=== PATIENT | female | born 1930 | race Caucasian/White ===

== ENCOUNTER 2018-06-14 07:54 | Inpatient (IN) | payer MEDICARE, MEDICAID ==
[~2018-06-14] VITALS: Ht 154.9 cm; Wt 52.3 kg
[2018-06-14] VITALS (42 sets, daily range): BP systolic 52–154; BP diastolic 27–114
[~2018-06-14 07:54] MED LIST: CITA40TA22 PO; DONE5TAB33 PO; HYDR12.529 PO; LISI-651 PO; MEMA5TAB7 PO; OMEP20CA4 PO; RISP05 PO; SENN-22 PO; TRAM50TA
[2018-06-14] MEDS ORDERED: VANCOMYCIN 1 G PREMIX 200 ML IV ONE (08:00)
[2018-06-14] MEDS ORDERED: PIPERACILLIN/TAZ 3.375G PREMIX 50 ML IV ONE (08:00)
[2018-06-14] MEDS ORDERED: SODIUM CHLORIDE 0.9% 1000ML BAG (SEPSIS BOLUS) IV ONE (08:00)
[2018-06-14 08:31] LABS: HEMATOCRIT. 30.8 % (36.0-48.0); HEMOGLOBIN. 9.7 g/dL (12.0-16.0); MEAN CORPUSCULAR HEMOGLOBIN 35.1 pg (28.0-32.0); MEAN CORPUSCULAR VOLUME 111.4 fL (81.0-99.0); MEAN PLATELET VOLUME 11.8 fl (7.4-10.4); PLATELET 201 x1000/uL (130-400); RED BLOOD CELL COUNT 2.77 mill/uL (4.2-5.4); RED CELL DISTRIBUTION WIDTH 18.3 % (11.6-14.6)
[2018-06-14 08:37] LABS: CHLORIDE 127 mEq/L (98-107)
[2018-06-14 08:43] LABS: CLARITY URINE CLOUDY (CLEAR); COLOR URINE DARK YELLOW (YELLOW); KETONES URINE NEGATIVE (NEGATIVE); LEUKOCYTE ESTERASE URINE 2+ (NEGATIVE); NITRITE URINE NEGATIVE (NEGATIVE); OCCULT BLOOD URINE NEGATIVE (NEGATIVE); PROTEIN URINE NEGATIVE (NEGATIVE); SPECIFIC GRAVITY URINE 1.021 (1.005-1.030); UROBILINOGEN URINE 0.2 E.U./dL (0.2-1.0)
[2018-06-14 08:46] LABS: PLATELET ESTIMATE NORMAL
[2018-06-14 09:29] LABS: BG BASE EXCESS -9.9 mmol/L (-2.0-2.0); BG CARBOXYHEMOGLOBIN 1.2 % (0.5-1.5); BG DEOXYHEMOGLOBIN 0.5 % (0.0-5.0); BG FRACTION INSPIRED OXYGEN 100; BG HCO3 ACT 13.8 mmol/L (22.0-26.0); BG METHEMOGLOBIN 0.3 % (0.0-1.5); BG OXYGEN SATURATION 99.5 % (92.0-98.5); BG PCO2 23.4 mmHg (35.0-45.0); BG PH 7.389 (7.350-7.450); BG PO2 457.9 mmHg (75.0-100.0); BG SAMPLE SITE RIGHT RADIAL; BG TOTAL HEMOGLOBIN 8.1 g/dL (12.0-18.0); BG VENT MODE MASK - NRB
[2018-06-14] MEDS ORDERED: NOREPINEPHRINE 4MG/250ML PMX 250 ML IV ONE (11:30)
[2018-06-14] MEDS ORDERED: DIPHENHYDRAMINE 50MG/ML VIAL IV PRN (13:15)
[2018-06-14] MEDS ORDERED: ONDANSETRON HCL 4MG/2ML INJ IV PRN (13:15)
[2018-06-14] MEDS ORDERED: ENOXAPARIN 40MG/0.4ML SYR SUBCUT SCH (13:15)
[2018-06-14] MEDS ORDERED: IPRATROPIUM/ALBUTEROL 0.5-3(2.5)MG/3ML NEB INH PRN (13:15)
[2018-06-14] MEDS ORDERED: DEXT 5%/0.45% NACL 1000ML 1,000 ML IV SCH (13:15)
[2018-06-14] MEDS: PANTOPRAZOLE SODIUM 40 MG/VIAL IV SCH (13:40)
[2018-06-14] MEDS: ENOXAPARIN 30MG/0.3ML SYR SUBCUT SCH (13:41)
[2018-06-14 14:19] LABS: T4 FREE 1.1 ng/dL (0.76-1.46)
[2018-06-14] MEDS ORDERED: DEXT 5%/0.2% NACL 1,000 ML IV SCH (14:30)
[2018-06-14] MEDS ORDERED: LEVOFLOXACIN 500MG PREMIX 100 ML IV SCH (14:30)
[2018-06-14 14:37] LABS: VITAMIN B12 SERUM 537 pg/mL (211-911)
[2018-06-14] MEDS ORDERED: DEXT 5%/0.2% NACL KCL 20MEQ/L 1,000 ML IV SCH (15:00)
[2018-06-14] MEDS: NOREPINEPHRINE 32 MG in DEXT 5% WATER 468 ML IV PRN (15:11)
[2018-06-14] MEDS: BUDESONIDE 0.5MG/2ML NEB HHN SCH ×2 (15:58→21:10)
[2018-06-14] MEDS: IPRATROPIUM/ALBUTEROL 0.5-3(2.5)MG/3ML NEB HHN SCH ×2 (15:58→20:53)
[2018-06-14] MEDS: NACL IV SCH ×2 (16:09→23:27)
[2018-06-14] MEDS: DEXT IV SCH ×2 (16:09→23:27)
[2018-06-14] MEDS: POTASSIUM CHLORIDE IV SCH ×2 (16:09→23:27)
[2018-06-14] MEDS: CEFEPIME 1,000 MG in DEXTROSE 5% WATER 50 ML IV SCH (17:12)
[2018-06-14] MEDS ORDERED: PHENYLEPHRINE 40 MG in DEXT 5% WATER 246 ML IV PRN (18:00)
[2018-06-14 18:13] LABS: BG BASE EXCESS -11.2 mmol/L (-2.0-2.0); BG BILEVEL POS AIRWAY PRESSURE 15/5; BG CARBOXYHEMOGLOBIN 0.9 % (0.5-1.5); BG DEOXYHEMOGLOBIN 0.9 % (0.0-5.0); BG FRACTION INSPIRED OXYGEN 40; BG METHEMOGLOBIN 0.3 % (0.0-1.5); BG OXYGEN SATURATION 99.1 % (92.0-98.5); BG OXYHEMOGLOBIN 97.9 % (94.0-97.0); BG PCO2 16.6 mmHg (35.0-45.0); BG PH 7.438 (7.350-7.450); BG PO2 213.3 mmHg (75.0-100.0); BG PRESSURE SUPPORT 10; BG SAMPLE SITE RIGHT BRACHIAL; BG TOTAL HEMOGLOBIN 9.7 g/dL (12.0-18.0); BG VENT MODE MASK - BIPAP
[2018-06-14] MEDS ORDERED: SODIUM BICARBONATE 8.4% 1 MEQ/ML 50ML SYR IV NR (18:30)
[2018-06-14] MEDS: ACETAMINOPHEN 650MG SUPP PR PRN (20:12)
[2018-06-14] MEDS: LORAZEPAM 2MG/ML CPJ IV PRN (22:23)
[2018-06-15] VITALS (92 sets, daily range): BP systolic 79–145; BP diastolic 29–75
[2018-06-15] MEDS: IPRATROPIUM/ALBUTEROL 0.5-3(2.5)MG/3ML NEB HHN SCH ×4 (02:06→20:23)
[2018-06-15 04:17] LABS: BASOPHILS % 0.8 % (0.0-2.0); EOSINOPHILS % 1.9 % (0.0-5.0); HEMATOCRIT. 22.8 % (36.0-48.0); HEMOGLOBIN. 7.2 g/dL (12.0-16.0); LYMPHOCYTES % 13.3 % (20.0-50.0); MEAN CORPUSCULAR HEMOGLOBIN 35.4 pg (28.0-32.0); MEAN CORPUSCULAR VOLUME 111.5 fL (81.0-99.0); MEAN PLATELET VOLUME 11.4 fl (7.4-10.4); MONOCYTES % 7.4 % (2.0-8.0); NEUTROPHILS % 76.6 % (40.0-76.0); PLATELET 151 x1000/uL (130-400); RED BLOOD CELL COUNT 2.04 mill/uL (4.2-5.4); RED CELL DISTRIBUTION WIDTH 17.9 % (11.6-14.6)
[2018-06-15 04:28] LABS: CHLORIDE 118 mEq/L (98-107)
[2018-06-15 04:32] LABS: PHOSPHORUS 2.6 mg/dL (2.5-4.9)
[2018-06-15] MEDS: LORAZEPAM 2MG/ML CPJ IV PRN ×3 (04:56→23:12)
[2018-06-15 07:53] LABS: BG BASE EXCESS -8.1 mmol/L (-2.0-2.0); BG BILEVEL POS AIRWAY PRESSURE ST=15/5; BG CARBOXYHEMOGLOBIN 1.4 % (0.5-1.5); BG DEOXYHEMOGLOBIN 0.8 % (0.0-5.0); BG FRACTION INSPIRED OXYGEN 40; BG HCO3 ACT 14.6 mmol/L (22.0-26.0); BG METHEMOGLOBIN 0.3 % (0.0-1.5); BG OXYGEN SATURATION 99.2 % (92.0-98.5); BG OXYHEMOGLOBIN 97.5 % (94.0-97.0); BG PCO2 20.7 mmHg (35.0-45.0); BG PH 7.467 (7.350-7.450); BG PO2 200.7 mmHg (75.0-100.0); BG PRESSURE SUPPORT 10; BG SAMPLE SITE LEFT BRACHIAL; BG TOTAL HEMOGLOBIN 7.2 g/dL (12.0-18.0); BG VENT MODE MASK - BIPAP; BG VENT RATE 14 set
[2018-06-15] MEDS: POTASSIUM CHLORIDE IV SCH ×4 (08:17→22:01)
[2018-06-15] MEDS: PANTOPRAZOLE SODIUM 40 MG/VIAL IV SCH (08:17)
[2018-06-15] MEDS: DEXT IV SCH ×4 (08:17→22:01)
[2018-06-15] MEDS: NACL IV SCH ×4 (08:17→22:01)
[2018-06-15] MEDS: ENOXAPARIN 30MG/0.3ML SYR SUBCUT SCH (08:18)
[2018-06-15] MEDS: BUDESONIDE 0.5MG/2ML NEB HHN SCH ×2 (09:04→20:22)
[2018-06-15] MEDS ORDERED: DEXTROSE 50% WATER 50ML SYRINGE IV PRN (10:30)
[2018-06-15] MEDS: BLOOD SUGAR DIAGNOSTIC STRIP TEST SCH ×2 (11:51→17:49)
[2018-06-15] MEDS: INSULIN GLARGINE UD 100 UNITS/ML SYR SUBCUT SCH ×2 (11:56→21:22)
[2018-06-15] MEDS: INSULIN LISPRO 100 UNITS/ML SUBCUT SCH ×3 (11:58→21:25)
[2018-06-15] MEDS ORDERED: METRONIDAZOLE 500 MG PREMIX 100 ML IV SCH (15:00)
[2018-06-15] MEDS: CEFEPIME 1,000 MG in DEXTROSE 5% WATER 50 ML IV SCH (15:45)
[2018-06-15] MEDS: METRONIDAZOLE 500 MG PREMIX 100 ML IV SCH ×2 (15:45→21:16)
[2018-06-15] MEDS ORDERED: VANCOMYCIN 750 MG PREMIX 150 ML IV NR (17:00)
[2018-06-16] VITALS (64 sets, daily range): BP systolic 91–147; BP diastolic 47–92
[2018-06-16] MEDS: BLOOD SUGAR DIAGNOSTIC STRIP TEST SCH ×4 (00:13→18:41)
[2018-06-16] MEDS: POTASSIUM CHLORIDE IV SCH ×3 (00:20→06:41)
[2018-06-16] MEDS: NACL IV SCH ×3 (00:20→06:41)
[2018-06-16] MEDS: DEXT IV SCH ×3 (00:20→06:41)
[2018-06-16] MEDS: IPRATROPIUM/ALBUTEROL 0.5-3(2.5)MG/3ML NEB HHN SCH ×4 (00:33→20:08)
[2018-06-16 05:41] LABS: HEMATOCRIT. 22.4 % (36.0-48.0); MEAN CORPUSCULAR VOLUME 117.1 fL (81.0-99.0); RED BLOOD CELL COUNT 1.91 mill/uL (4.2-5.4); RED CELL DISTRIBUTION WIDTH 18.2 % (11.6-14.6)
[2018-06-16] MEDS: METRONIDAZOLE 500 MG PREMIX 100 ML IV SCH ×3 (05:53→21:10)
[2018-06-16 05:54] LABS: PHOSPHORUS 1.3 mg/dL (2.5-4.9)
[2018-06-16 06:08] LABS: HEMOGLOBIN. 6.7 g/dL (12.0-16.0)
[2018-06-16] MEDS ORDERED: LEVO75TA7 PO (07:32)
[2018-06-16] MEDS ORDERED: LEVOTHYROXINE SODIUM 75MCG TABLET PO SCH (07:50)
[2018-06-16] MEDS: INSULIN LISPRO 100 UNITS/ML SUBCUT SCH ×3 (08:20→18:20)
[2018-06-16] MEDS: BUDESONIDE 0.5MG/2ML NEB HHN SCH ×2 (08:44→20:08)
[2018-06-16] MEDS: PANTOPRAZOLE SODIUM 40 MG/VIAL IV SCH (08:53)
[2018-06-16] MEDS: ENOXAPARIN 30MG/0.3ML SYR SUBCUT SCH (09:00)
[2018-06-16] MEDS ORDERED: DEXT 5%/0.2% NACL 1,000 ML IV ONE (09:45)
[2018-06-16 09:55] LABS: MEAN PLATELET VOLUME 11.2 fl (7.4-10.4); PLATELET 103 x1000/uL (130-400); PLATELET ESTIMATE DECREASED
[2018-06-16] MEDS: VANCOMYCIN 500 MG PREMIX 100 ML IV SCH (09:55)
[2018-06-16] MEDS ORDERED: SODIUM PHOS,M-BASIC-D-BASIC 20 MM in DEXT 5% WATER 243.3333 ML IV NR (10:30)
[2018-06-16] MEDS: INSULIN GLARGINE UD 100 UNITS/ML SYR SUBCUT SCH (11:20)
[2018-06-16] MEDS ORDERED: SODIUM BICARBONATE 8.4% 1 MEQ/ML 50ML SYR IV ONE (11:45)
[2018-06-16] MEDS: NOREPINEPHRINE 32 MG in DEXT 5% WATER 468 ML IV PRN (12:20)
[2018-06-16] MEDS: WATER IV SCH ×2 (13:27→22:45)
[2018-06-16] MEDS: SODIUM BICARBONATE IV SCH ×2 (13:27→22:45)
[2018-06-16] MEDS: DEXTROSE 5% IV SCH ×2 (13:27→22:45)
[2018-06-16] MEDS ORDERED: LEVOFLOXACIN 250MG PREMIX 50 ML IV SCH (14:00)
[2018-06-16] MEDS: LEVOTHYROXINE SODIUM 100 MCG/ VIAL IV SCH (14:40)
[2018-06-16] MEDS: CEFEPIME 1,000 MG in DEXTROSE 5% WATER 50 ML IV SCH (15:03)
[2018-06-16] MEDS: AZITHROMYCIN 500 MG in DEXT 5% WATER 250 ML IV SCH (17:15)
[2018-06-16 19:53] LABS: HEMATOCRIT 24.7 % (36.0-48.0); MEAN CORPUSCULAR HEMOGLOBIN 34.1 pg (28.0-32.0); MEAN CORPUSCULAR VOLUME 105.2 fL (81.0-99.0); PLATELET 99 x1000/uL (130-400); RED BLOOD CELL COUNT 2.34 mill/uL (4.2-5.4); RED CELL DISTRIBUTION WIDTH 21.5 % (11.6-14.6)
[2018-06-17] VITALS (41 sets, daily range): BP systolic 83–144; BP diastolic 46–101
[2018-06-17] MEDS: BLOOD SUGAR DIAGNOSTIC STRIP TEST SCH ×4 (00:30→18:11)
[2018-06-17] MEDS: INSULIN GLARGINE UD 100 UNITS/ML SYR SUBCUT SCH ×3 (01:06→22:01)
[2018-06-17] MEDS: IPRATROPIUM/ALBUTEROL 0.5-3(2.5)MG/3ML NEB HHN SCH ×4 (02:00→20:20)
[2018-06-17] MEDS: VANCOMYCIN 500 MG PREMIX 100 ML IV SCH (03:21)
[2018-06-17] MEDS: WATER IV SCH (03:22)
[2018-06-17] MEDS: DEXTROSE 5% IV SCH (03:22)
[2018-06-17] MEDS: SODIUM BICARBONATE IV SCH (03:22)
[2018-06-17 05:29] LABS: HEMATOCRIT. 23.6 % (36.0-48.0); MEAN CORPUSCULAR HEMOGLOBIN 33.6 pg (28.0-32.0); MEAN CORPUSCULAR VOLUME 99.2 fL (81.0-99.0); RED BLOOD CELL COUNT 2.38 mill/uL (4.2-5.4); RED CELL DISTRIBUTION WIDTH 19.9 % (11.6-14.6)
[2018-06-17 05:35] LABS: CHLORIDE 114 mEq/L (98-107)
[2018-06-17 05:42] LABS: PHOSPHORUS 1.8 mg/dL (2.5-4.9)
[2018-06-17] MEDS: INSULIN LISPRO 100 UNITS/ML SUBCUT SCH ×4 (06:00→18:00)
[2018-06-17] MEDS: METRONIDAZOLE 500 MG PREMIX 100 ML IV SCH ×3 (06:20→21:55)
[2018-06-17] MEDS: PANTOPRAZOLE SODIUM 40 MG/VIAL IV SCH (08:22)
[2018-06-17] MEDS: LEVOTHYROXINE SODIUM 100 MCG/ VIAL IV SCH (08:23)
[2018-06-17] MEDS: BUDESONIDE 0.5MG/2ML NEB HHN SCH (09:47)
[2018-06-17] MEDS: DEXT 5%/0.45% NACL 1000ML 1,000 ML IV SCH ×2 (09:52→22:16)
[2018-06-17] MEDS ORDERED: SODIUM PHOS,M-BASIC-D-BASIC 15 MM in DEXT 5% WATER 245 ML IV SCH (10:30)
[2018-06-17] MEDS ORDERED: MAGNESIUM 2 G PREMIX 50 ML IV SCH (10:30)
[2018-06-17 10:49] LABS: PLATELET 96 x1000/uL (130-400)
[2018-06-17 10:53] LABS: PLATELET ESTIMATE SLIGHTLY DECREASED
[2018-06-17] MEDS: ENOXAPARIN 30MG/0.3ML SYR SUBCUT SCH (13:00)
[2018-06-17] MEDS: AZITHROMYCIN 500 MG in DEXT 5% WATER 250 ML IV SCH (15:05)
[2018-06-17] MEDS: CEFEPIME 1,000 MG in DEXTROSE 5% WATER 50 ML IV SCH (15:07)
[2018-06-18] VITALS (16 sets, daily range): BP systolic 110–151; BP diastolic 53–103
[2018-06-18] MEDS: BLOOD SUGAR DIAGNOSTIC STRIP TEST SCH ×4 (00:08→17:10)
[2018-06-18] MEDS: IPRATROPIUM/ALBUTEROL 0.5-3(2.5)MG/3ML NEB HHN SCH ×4 (01:40→20:35)
[2018-06-18 05:48] LABS: BASOPHILS % 0.4 % (0.0-2.0); EOSINOPHILS % 4.9 % (0.0-5.0); HEMOGLOBIN. 8.7 g/dL (12.0-16.0); LYMPHOCYTES % 27.3 % (20.0-50.0); MEAN CORPUSCULAR HEMOGLOBIN 33.3 pg (28.0-32.0); MEAN CORPUSCULAR VOLUME 99.7 fL (81.0-99.0); MEAN PLATELET VOLUME 10.9 fl (7.4-10.4); MONOCYTES % 12.6 % (2.0-8.0); NEUTROPHILS % 54.8 % (40.0-76.0); PLATELET 126 x1000/uL (130-400); RED CELL DISTRIBUTION WIDTH 19.5 % (11.6-14.6)
[2018-06-18] MEDS: INSULIN LISPRO 100 UNITS/ML SUBCUT SCH ×4 (06:00→17:16)
[2018-06-18] MEDS: DEXT 5%/0.45% NACL 1000ML 1,000 ML IV SCH ×2 (06:03→21:31)
[2018-06-18] MEDS: METRONIDAZOLE 500 MG PREMIX 100 ML IV SCH ×3 (06:10→21:36)
[2018-06-18] MEDS: LEVOTHYROXINE SODIUM 100 MCG/ VIAL IV SCH (09:02)
[2018-06-18] MEDS: PANTOPRAZOLE SODIUM 40 MG/VIAL IV SCH (09:03)
[2018-06-18] MEDS: ENOXAPARIN 30MG/0.3ML SYR SUBCUT SCH (09:03)
[2018-06-18] MEDS: ACETAMINOPHEN 650MG SUPP PR PRN (09:25)
[2018-06-18] MEDS: INSULIN GLARGINE UD 100 UNITS/ML SYR SUBCUT SCH ×2 (10:51→22:00)
[2018-06-18] MEDS: CEFEPIME 1,000 MG in DEXTROSE 5% WATER 50 ML IV SCH (15:55)
[2018-06-18] MEDS: AZITHROMYCIN 500 MG in DEXT 5% WATER 250 ML IV SCH (15:55)
[2018-06-19] VITALS (10 sets, daily range): BP systolic 131–158; BP diastolic 63–80
[2018-06-19] MEDS: BLOOD SUGAR DIAGNOSTIC STRIP TEST SCH ×4 (00:04→18:08)
[2018-06-19] MEDS: IPRATROPIUM/ALBUTEROL 0.5-3(2.5)MG/3ML NEB HHN SCH ×5 (01:38→20:08)
[2018-06-19] MEDS: INSULIN LISPRO 100 UNITS/ML SUBCUT SCH ×4 (05:54→18:00)
[2018-06-19] MEDS: LORAZEPAM 2MG/ML CPJ IV PRN (08:30)
[2018-06-19] MEDS: ENOXAPARIN 30MG/0.3ML SYR SUBCUT SCH (09:00)
[2018-06-19] MEDS: PANTOPRAZOLE SODIUM 40 MG/VIAL IV SCH (09:47)
[2018-06-19] MEDS: LEVOTHYROXINE SODIUM 100 MCG/ VIAL IV SCH (09:47)
[2018-06-19] MEDS: INSULIN GLARGINE UD 100 UNITS/ML SYR SUBCUT SCH ×2 (11:13→22:00)
[2018-06-19] MEDS: DEXT 5%/0.45% NACL 1000ML 1,000 ML IV SCH (13:56)
[2018-06-20] VITALS (10 sets, daily range): BP systolic 140–164; BP diastolic 54–87
[2018-06-20] MEDS: BLOOD SUGAR DIAGNOSTIC STRIP TEST SCH ×4 (00:07→17:55)
[2018-06-20] MEDS: IPRATROPIUM/ALBUTEROL 0.5-3(2.5)MG/3ML NEB HHN SCH ×4 (02:02→20:14)
[2018-06-20] MEDS: INSULIN LISPRO 100 UNITS/ML SUBCUT SCH ×4 (05:34→17:55)
[2018-06-20] MEDS: LEVOTHYROXINE SODIUM 100 MCG/ VIAL IV SCH (05:34)
[2018-06-20] MEDS: DEXT 5%/0.45% NACL 1000ML 1,000 ML IV SCH (05:35)
[2018-06-20 07:32] LABS: INR 1.2; PARTIAL THROMBOPLASTIN TIME 26.2 sec (23.4-31.0); PROTHROMBIN TIME 11.8 sec (9.6-11.0)
[2018-06-20 07:35] LABS: CHLORIDE 115 mEq/L (98-107)
[2018-06-20 07:37] LABS: HEMATOCRIT 25.3 % (36.0-48.0); HEMOGLOBIN 8.4 g/dL (12.0-16.0); MEAN CORPUSCULAR HEMOGLOBIN 33.5 pg (28.0-32.0); MEAN CORPUSCULAR VOLUME 101.4 fL (81.0-99.0); PLATELET 140 x1000/uL (130-400); RED CELL DISTRIBUTION WIDTH 18.9 % (11.6-14.6)
[2018-06-20] MEDS: PANTOPRAZOLE SODIUM 40 MG/VIAL IV SCH (09:15)
[2018-06-20] MEDS ORDERED: SIMETHICONE 40 MG/0.6 ML 30ML ONE (10:00)
[2018-06-20] MEDS ORDERED: SODIUM CHLORIDE 0.9% 10ML VIAL ONE (10:00)
[2018-06-20] MEDS: INSULIN GLARGINE UD 100 UNITS/ML SYR SUBCUT SCH ×2 (10:00→22:22)
[2018-06-20] MEDS ORDERED: CEFAZOLIN 1000MG PREMIX 50 ML IV NR (10:30)
[2018-06-20] MEDS ORDERED: FENTANYL CITRATE/PF 50MCG/ML 2ML VIAL ONE (11:35)
[2018-06-20] MEDS ORDERED: CEFAZOLIN 1000MG PREMIX 0 ML IV ONE (11:35)
[2018-06-20] MEDS ORDERED: MIDAZOLAM HCL 5 MG/5 ML VIAL ONE (11:35)
[2018-06-20] MEDS ORDERED: MIDAZOLAM HCL 5 MG/5 ML VIAL IV PRN (11:54)
[2018-06-20] MEDS ORDERED: FENTANYL CITRATE/PF 50MCG/ML 2ML VIAL IV PRN (11:55)
[2018-06-20] MEDS ORDERED: CLONIDINE 0.1MG TABLET PO PRN (17:00)
[2018-06-21] VITALS: BP 107/60
[2018-06-21] MEDS: DEXT 5%/0.45% NACL 1000ML 1,000 ML IV SCH ×2 (00:39→06:34)
[2018-06-21] MEDS: BLOOD SUGAR DIAGNOSTIC STRIP TEST SCH ×3 (00:39→12:00)
[2018-06-21] MEDS: IPRATROPIUM/ALBUTEROL 0.5-3(2.5)MG/3ML NEB HHN SCH ×3 (01:44→14:44)
[2018-06-21 04:00] VITALS: BP 156/78
[2018-06-21] MEDS: INSULIN LISPRO 100 UNITS/ML SUBCUT SCH ×3 (06:00→12:00)
[2018-06-21] MEDS: LEVOTHYROXINE SODIUM 100 MCG/ VIAL IV SCH (06:45)
[2018-06-21 08:00] VITALS: BP 145/57
[2018-06-21] MEDS: PANTOPRAZOLE SODIUM 40 MG/VIAL IV SCH (08:50)
[2018-06-21] MEDS: INSULIN GLARGINE UD 100 UNITS/ML SYR SUBCUT SCH (10:22)
[2018-06-21 12:00] VITALS: BP 132/81
[2018-06-21 15:29] VITALS: BP 142/72
[2018-06-21 15:40] VITALS: BP 142/75
== END 2018-06-21 16:40 | DRG 871 ==
LOC: ER 07:54 → ENRESERV 11:28 → CVICU 12:20 → 5EST 06-18 03:05
PROVIDERS: ADMIT Internal Medicine; ATTEND Internal Medicine
PROC: 5A09357 Assistance with Respiratory Ventilation, Less than 24 Consecutive Hours, Continuous Positive Airway Pressure (ICD-10-PCS; 2018-06-14)
PROC: 02HV33Z Insertion of Infusion Device into Superior Vena Cava, Percutaneous Approach (ICD-10-PCS; 2018-06-14)
PROC: B548ZZA Ultrasonography of Superior Vena Cava, Guidance (ICD-10-PCS; 2018-06-14)
PROC: 5A09357 Assistance with Respiratory Ventilation, Less than 24 Consecutive Hours, Continuous Positive Airway Pressure (ICD-10-PCS; 2018-06-15)
PROC: 5A09357 Assistance with Respiratory Ventilation, Less than 24 Consecutive Hours, Continuous Positive Airway Pressure (ICD-10-PCS; 2018-06-16)
PROC: 0DH63UZ Insertion of Feeding Device into Stomach, Percutaneous Approach (ICD-10-PCS; principal; 2018-06-20)
DX: A41.9 Sepsis, unspecified organism (principal); E43 Unspecified severe protein-calorie malnutrition; J96.00 Acute respiratory failure, unspecified whether with hypoxia or hypercapnia; R65.21 Severe sepsis with septic shock; N17.0 Acute kidney failure with tubular necrosis; G93.41 Metabolic encephalopathy; N39.0 Urinary tract infection, site not specified; K92.2 Gastrointestinal hemorrhage, unspecified; E87.0 Hyperosmolality and hypernatremia; E87.1 Hypo-osmolality and hyponatremia; E87.2 Acidosis; Z66 Do not resuscitate; E11.22 Type 2 diabetes mellitus with diabetic chronic kidney disease; D63.8 Anemia in other chronic diseases classified elsewhere; E83.39 Other disorders of phosphorus metabolism; E86.0 Dehydration; E87.5 Hyperkalemia; N18.9 Chronic kidney disease, unspecified; D69.2 Other nonthrombocytopenic purpura; E11.65 Type 2 diabetes mellitus with hyperglycemia; E89.0 Postprocedural hypothyroidism; F03.90 Unspecified dementia, unspecified severity, without behavioral disturbance, psychotic disturbance, mood disturbance, and anxiety; I12.9 Hypertensive chronic kidney disease with stage 1 through stage 4 chronic kidney disease, or unspecified chronic kidney disease; I34.1 Nonrheumatic mitral (valve) prolapse; J44.9 Chronic obstructive pulmonary disease, unspecified; K21.9 Gastro-esophageal reflux disease without esophagitis; K44.9 Diaphragmatic hernia without obstruction or gangrene; F32.9 Major depressive disorder, single episode, unspecified; F41.9 Anxiety disorder, unspecified; M19.90 Unspecified osteoarthritis, unspecified site; Z96.651 Presence of right artificial knee joint; L89.159 Pressure ulcer of sacral region, unspecified stage; L89.319 Pressure ulcer of right buttock, unspecified stage; Z22.322 Carrier or suspected carrier of Methicillin resistant Staphylococcus aureus; Z68.21 Body mass index [BMI] 21.0-21.9, adult; Z87.440 Personal history of urinary (tract) infections; Z90.710 Acquired absence of both cervix and uterus; Z79.899 Other long term (current) drug therapy
CPT/HCPCS: 36415; 36569; 36600; 71045; 74018; 76770; 76937; 80048; 80202; 82270; 82375; 82607; 82805; 82962; 83036; 83605; 83735; 84100; 84132; 84134; 84145; 84439; 84443; 84484; 85027; 86850; 86900; 86920; 87015; 87045; 87427; 87449; 87493; 89055; 92610; 93005; 93970; 94640; 96365; 96366; 96368; 99291; A6261; C1725; C9113; J0456; J0690; J0692; J1650; J1815; J1956; J2060; J2250; J2543; J3010; J3370; J3475; J3480; J3490; J7030; J7050; J7060; J7070; J7620; J7626; P9016